=== PATIENT | male | born 1965 | race Caucasian/White ===

== ENCOUNTER 2021-06-30 07:03 | Emergency (ER) | payer BC ==
[~2021-06-30] VITALS: Ht 193 cm; Wt 102.1 kg
[2021-06-30 07:10] VITALS: BP 165/105
[2021-06-30] MEDS ORDERED: DROPERIDOL (07:26)
[2021-06-30] MEDS ORDERED: INSULIN LI100 UNIT/1 (07:27)
== END 2021-06-30 11:15 ==
LOC: ER 07:03
PROVIDERS: Student in an Organized Health Care Education/Training Program
DX: F03.91 Unspecified dementia, unspecified severity, with behavioral disturbance (principal); Z20.822 Contact with and (suspected) exposure to COVID-19

== ENCOUNTER 2021-06-30 09:46 | Inpatient (IN) | payer BC ==
[~2021-06-30] VITALS: Ht 182.9 cm; Wt 81.8 kg
[~2021-06-30 09:46] MED LIST: DROPERIDOL; INSULIN LI100 UNIT/1
[2021-06-30 12:37] VITALS: BP 167/84
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
[2021-06-30 13:50] LABS: CHOLESTEROL 162 mg/dL (<200); HDL CHOLESTEROL 60 mg/dL (>40); LDL CHOLESTEROL 92 mg/dL (<100); TC:HDL 2.7 Ratio (Not establshd); TRIGLYCERIDE 53 mg/dL (<150); VLDL 11 mg/dL (<40)
[2021-06-30 14:12] LABS: ABSOLUTE NEUTROPHILS 4.7 thou/uL (1.4-8.2); BASOPHILS 0.7 % (0.0-2.0); EOSINOPHILS 0.9 % (0.0-3.0); HEMATOCRIT 33.7 % (42.0-52.0); HEMOGLOBIN 11.3 gm/dL (14.0-18.0); LYMPHOCYTES 18.1 % (24.0-44.0); MCH 30.2 pg (26.0-34.0); MCHC 33.4 g/dL (28.0-37.0); MCV 90.3 fL (80.0-100.0); MONOCYTES 7.4 % (1.0-8.0); PLATELET COUNT 348 thou/uL (150-400); POLYS 72.9 % (36.0-66.0); RBC 3.73 mil/uL (4.50-6.00); RDW 14.1 % (10.5-14.5); WBC 6.5 thou/uL (4.0-11.0)
[2021-06-30 14:44] LABS: CALCIUM 9.3 mg/dL (8.5-10.1); CREATININE 1.2 mg/dL (0.7-1.3); MAGNESIUM 1.7 mg/dL (1.8-2.4); POTASSIUM 5.6 mmol/L (3.5-5.1); TOTAL BILIRUBIN 0.7 mg/dL (0.2-1.0); TOTAL PROTEIN 7.6 g/dL (6.4-8.2)
[2021-06-30 19:22] VITALS: BP 160/103
--- NOTE | 2021-07-01 03:16 | NUR ---
PATIENT HAS BEEN ISOLATIVE IN HIS ROOM SINCE THE BEGINNING OF HS SHIFT. HE TOLD STAFF THAT HE WAS SLEEPY AND WANTED TO BE LEFT ALONE. HE DENIES SI/HI OR PAIN. PATIENT WAS ADMITTED WITH BLOOD SUGARS GREATER THAN 500 DURING THE AM SHIFT. PATIENT HAS BEEN GIVEN MULTIPLE DOSES OF COVERAGE FOR SUGAR. AT HS SHIFT PATIENT GLUCOSE LEVEL WAS 36. HE WAS LETHARGIC BUT ABLE TO ANSWER QUESTIONS AND ABLE TO TOLERATE PO FLUIDS. 2 CUPS OF OJ GIVEN AND ORAL GLUCOSE ADMINISTERED. AFTER APPROXIMATELY 15-20 MINUTES RECHECK REVEALED GLUCOSE LEVEL ONLY UP TO 50. GLUCOSE ADMINISTERED INTRAMUSCULARLY WHICH PATIENT TOLERATED WELL. AFTER 20 MINUTES GLUCOSE LEVEL UP OVER 120. PATIENT REMAINS CALM AND COOPERATIVE. ALL OTHER VSS. DENIES PAIN OR OTHER NEEDS. WILL CONTINUE TO MONITOR FOR CHANGES IN STATUS.
[2021-07-01 04:06] LABS: GLYCOHEMOGLOBIN (HGB A1C) 12.1 % (4.8-5.6)
[2021-07-01 05:58] LABS: ABSOLUTE NEUTROPHILS 4.1 thou/uL (1.4-8.2); BASOPHILS 0.6 % (0.0-2.0); EOSINOPHILS 3.5 % (0.0-3.0); HEMATOCRIT 34.9 % (42.0-52.0); HEMOGLOBIN 11.7 gm/dL (14.0-18.0); LYMPHOCYTES 31.7 % (24.0-44.0); MCH 29.9 pg (26.0-34.0); MCHC 33.5 g/dL (28.0-37.0); MCV 89.3 fL (80.0-100.0); MONOCYTES 4.9 % (1.0-8.0); PLATELET COUNT 362 thou/uL (150-400); POLYS 59.3 % (36.0-66.0); RBC 3.91 mil/uL (4.50-6.00); WBC 6.9 thou/uL (4.0-11.0)
[2021-07-01 06:07] LABS: CALCIUM 9.4 mg/dL (8.5-10.1)
[2021-07-01 06:15] LABS: POTASSIUM 4.5 mmol/L (3.5-5.1)
[2021-07-01 10:52] VITALS: BP 138/64
--- NOTE | 2021-07-01 17:35 | NUR ---
NATHAN and Dr. Alvarenga were able to speak to the Pt's court appointed Guardian Kayliereid Duong. Kaylie informed the Pt's placement would not take the Pt back. Kaylie stated the placement did sign the statement at admission but told her they do not plan to accept him back. Kaylie stated the Pt is in need of a memory care facility with a locked unit. Kaylie stated the Pt does have private funds of about $20,000. However Pt would need a placement that could take medicaid once Pt has spent down the money. Kaylie also informed Pt is a " Brittle Diabetic". That the Pt blood sugar goes very low to extremley high. Kaylie stated "It's not unusually for his blood sugar to be in the 600's". Medications were discussed. Kaylie was in agreement to med changes. There were no other questions or concerns at this time. NATHAN will continue to follow
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
[2021-07-01 19:29] VITALS: BP 144/97
--- NOTE | 2021-07-02 05:23 | NUR ---
Assumed care of pt at 1900. Pt calm et cooperative this shift. Took medications whole without difficulty. Ambulates the halls ad manpreet with steady gait. Isolated in room most of shift. VSWNL. Health assessment with no abnormalities noted at present time. Glargine insulin given on this shift due to not being given n previous shift per orders. HS accucheck was 346 at 1936 resulting in 16 units of Lispro administered per sliding scale. Pt denies SI/HI at present time. Currently resting in bed with eyes closed. Will continue to monitor per unit protocol.
--- NOTE | 2021-07-02 09:46 | NUR ---
New admit to [facility] with major neurocognitive disorder, hx dementia, DM, and CVA. Attempted visit this am, however pt in room, locked. Initial chart review showing poor diabetes control with A1C of 12%. BG as low as 36 and as high as 500. Has demonstrated good appetite since admit. Large wt discrepancy noted in computer 155 lb vs 225 lb. Alerted DEHYDRATING PRESS OPERATOR who indicated will reweigh pt. Add carb control to current diet order. Presents low nutrition risk and will continue to follow intake trends and wts as appropriate.
[2021-07-02 09:49] VITALS: BP 144/86
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
[2021-07-02 14:31] VITALS: BP 144/86
--- NOTE | 2021-07-02 17:50 | NUR ---
Primary care done by Rosalina Multani LPN. Assessment done by this RN. Alert and orientated to person, giving incomplete answers to other orientation questions. Angry, refusing parts of assessment and being sarcastic. Denies SI/HI. Breath sounds clear. Reg HR auscultated. Color pink with brisk capillary refill and palpable peripheral pulses. Active bowel sounds over soft, rounded abdomen. Ambulates with regular, steady gait.
[2021-07-02 19:20] VITALS: BP 148/91
--- NOTE | 2021-07-03 04:21 | NUR ---
Assumed care of pt at 1900. Pt calm et cooperative most of shift. Isolated in room for majority of shift. Took medications whole without difficulty. Continues to refuse ointment for facial rash. When asked why he does not want to use, pt states, "I just don't want it". Ambulates the halls ad manpreet with steady gait. Came to the dayroom to ask for a snack several times tonight et became visibly upset when was told that he could not have ice cream because it is not sugar-free and his blood sugars continue to be elevated. HS blood sugar was 295 et Lispro insulin was administered per sliding scale. VSWNL. Health assessment with no abnormalities noted at present time. Pt denies SI/HI at present time. No AVH noted at present time. No c/o pain or discomfort voiced this shift. Currently resting in bed with eyes closed. Will continue to monitor per unit protocol.
[2021-07-03 08:20] VITALS: BP 130/84
[2021-07-03 09:13] VITALS: BP 130/84
--- NOTE | 2021-07-03 17:17 | NUR ---
Assumed pt care this morning from overnight shift. Client presented hostile and irritable this morning and was resistant to cares. Client would not let staff take his blood sugars in the morning, yelling "you can't make me; you better call security; I'll punch you." Client would not let two different roadway designer staff or two different nurses take his blood sugar initially. Security was called for this, as client was threatening, and is a highly fluctuating diabetic with erratic blood sugars who has been running high blood sugars. Security called to help with medical precaution, as blood sugar was vital to client care. When security came, client stated "I didn't ask for security" and let staff provide care without any interference from security at this time. Client's blood glucose recorded and was 186 this morning. Sliding scale insulin given in addition to 30 units of glarine per order. Client was compliant with all medications at this time and accepted insulin as well. Client was oriented to self only at this time, and stated it was 2010 and that he was in a senior living. Client stated "I only have depression and anxiety when you're here" to staff when asked about depression and anxiety symptoms. Client denied hallucinations at this time. Client denied any suicidal or homicidal thoughts, and stated "these questions aren't important; I don't know why you keep asking me these questions." Staff explained questions and need for daily questions at this time. Client lung sounds were clear. Bowel sounds present. Last BM 07/02/21. Client's behavior noted to Dr. Young. Client's haldol increased to TID. Client's blood glucose for lunch was 273. Sliding scale insulin given at this time. No resistance to cares. Client took 1500 haldol without any complaint. Client expressed concern of not having any spare clothing at this time. Client given shirt, socks, underwear, and pants from hospital supply. Client became irritable when staff could not provide him with jeans although staff explained that there were not jeans in facility. Despite this, client remained compliant with cares. During dinner, client glucose was 367. Sliding scale insulin given at this time. After dinner, client came up to staff @1820, stating "when are you going to give me my insulin." Staff explained that insulin had already been given at this time. Client stated that it had not. Staff redirected client at this time. Client wanted blood glucose recheck, which was 399. Client advised about peak action time of insulin, and about blood sugar regulation. Client was irritable during this time, but voiced understanding. Hospitalist not called at this time, as blood sugar protocol is calling above 400 and as peak time of insulin has not yet passed. No further concerns at this time.
[2021-07-03 19:09] VITALS: BP 121/80
--- NOTE | 2021-07-04 03:15 | NUR ---
Assumed care of pt at 1900. Pt calm et cooperative this shift. Took medications whole without difficulty. Administered own insulin injection to right lower abdomen per sliding scale for HS accucheck of 273. Came out of room intermittently this shift. Spoke on the phone with mother and brother this shift. Demeanor was brighter and more friendly than reported from previous shift. Ambulates the halls ad manpreet with steady gait. VSWNL. Health assessment with no abnormalities noted at present time. Pt denies SI/HI at present time. No AVH noted this shift. Currently resting in bed with eyes closed. Will continue to monitor per unit protocol.
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
[2021-07-04 09:44] VITALS: BP 131/85
--- NOTE | 2021-07-04 11:20 | NUR ---
Security enforced in giving pt SS insulin this am. Pt came out of room and already made 2 phone calls, one to mom and another to guardian. Dr Leung updated lantus order, ok to give since pt ate 100% breakfast this am. Pt's mother, Jessica updated this am per her request. Pt's mom voiced she can be called to speak with pt in order to get him to cooperate with care as needed. Nursing told pt's mom he was refusing his flagyl topical. Mom voiced pt was diagnosed with rosacea years ago and doesnt think pt sought help for it. Pt currently in the room and now has room lockout order for both meals and groups.
--- NOTE | 2021-07-04 13:19 | NUR ---
Pt declined coming out of rm for group. Started getting agitated and walking towards nursing. Security was called as pt has room lockout order for meals and groups. Security able to talk pt into coming to dayroom. Pt currently sitting in group with flat affect. Nursing to continue to monitor.
--- NOTE | 2021-07-04 18:19 | NUR ---
Pt came to nursing station and informed nursing that he lost his friend Kael Cade, who was a building guard deputy sheriffOffice Agent. Pt was tearful at the time. Nursing condoled with the pt on lost of his friend. Pt later on requested to use the phone to call the paper reel operator's office to speak with his late friend's office. Pt encouraged its already night and on monday. Pt voiced to try to call monday. Unsure if pt knows what number to call. Pt came back to ask for the phone for he could call his mom. Pt took phone to his room. 30 mins later, nursing went into pt's rm, pt had phone but not calling anyone. Pt was upset when asked to hand over since he was not using it. Pt was upset but gave phone. Nursing to continue to monitor.
[2021-07-04 19:07] VITALS: BP 138/84
[2021-07-04 20:10] VITALS: BP 138/84
--- NOTE | 2021-07-05 00:32 | NUR ---
PATIENT WAS FRUSTRATED AND ANGRY AT BEGINNING OF THE SHIFT BECAUSE HE COULDN'T USE THE PHONE RIGHT AWAY BECAUSE THEY WERE OUT. HE CALMED DOWN AND THIS NURSE DIALED THE NUMBER TO HIS MOM AND HE SPOKE WITH HER. HE BECAME ANGRY WHEN I REQUESTED THE PHONE BACK BECAUSE IT NEEDED TO CHARGE. HE COMPLIED AND WENT TO HAVE ICECREAM AFTER FINDING OUT THAT HIS GLUCOSE WAS 44. BLOOD SUGAR RECHECKED IN 20 MINUTES AND IT WAS UP TO 82. CRACKERS WITH PB AND MILK AND JUICE GIVEN. RECHECKED IN AN HOUR AND WAS UP TO 122. PATIENT WAS ASYMPTOMATIC DURING ALL OF THIS EXCEPT FOR HIS IRRITABILITY. PATIENT TOOK HIS MEDS WHOLE AND WENT TO BED. HE HAS BEEN SLEEPING SINCE 2100. VSS. NO OTHER COMPLAINTS. DENIES PAIN, SI/HI/AVH. ROUTINE ROUNDS TO ASSESS SAFETY AND STATUS OF PATIENT. CONTINUING TO MONITOR.
[2021-07-05 09:18] VITALS: BP 131/85; BP 132/78
--- NOTE | 2021-07-05 14:26 | NUR ---
WITHDRAWN TO ROOM INITIALLY THIS AM COMING OUT FOR BREAKFAST AND EATING 100 PERCENT OF MEAL PRIOR TO RETURNING TO ROOM. DURING AM ASSESSMENT/MED PASS OFFERED BRIEF ABRUPT RESPONSES AND TURNED HEAD AWAY WHEN ASKED FOR ADDITIONAL INFORMATION. WHEN ASKED ABOUT HIS MOOD THIS AM STATES VAGUELY "ITS OK" DENIES SI/SH/HI. GAIT STEADY WITHOUT ASSISTIVE DEVICES. DENIES PAIN/DISCOMFORT. HAS BEEN COMPLIENT WITH HAVING ACCUCHECKS AND INSULIN ADMINISTRATION COMPLETED. DYSPHORIC MOOD. DENIES A/V HALLUCINATIONS-NO NOTED OR REPORTED PSYCHOSIS/DELUSIONAL THINKING/PARANOIA.
[2021-07-05 19:35] VITALS: BP 150/94
[2021-07-05 20:11] VITALS: BP 150/94
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
--- NOTE | 2021-07-06 07:22 | NUR ---
Late Entry - called and left message for the DEEJAY Pina at [facility] after the weekend nursing staff reported in treatment team that the facility now reports they will not accept patient back. Yesterday afternoon she returned my call and I reminded her that we only accepted under the condition that they will accept him back once we have completed treatment.She had signed the pre-admission Letter of Understanding. She acknowledged this and we discussed the importance of her facility and patients guardian identifying potential places for patient to live at post discharge. Told her that we can assist in the placement process - ie, sending records, etc. But when he is ready for discharge, he will need to return to them if placement has not been secured. DEEJAY voiced understanding.
[2021-07-06 10:03] VITALS: BP 150/94
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
--- NOTE | 2021-07-06 18:13 | NUR ---
See previous note regarding manual hold and noncompliant behaviors this morning. Pt has since been cooperative with medication and ACCU checks. His BG at breakfast was 151 and pt received 20 units of humalog. BG at lunch was 314 and pt received 28 units of humalog. At dinner pt BG was 123 and received 18 units of humalog. He ate 100% of all meals. He was alert and oriented to self only this shift. He knew it was June but did not know the year, he stated [place]", and when asked why he was in the hospital he said "because I had surgery". He was withdrawn and isolative to his room this shift and refused to go to groups. He came out and asked to use the phone a couple time throughout the day to call his mom and did so appropriately. He asked to use the phone during group time and responded appropriatly to education and redirection regarding times the pt's may use the phone. Pt could not recall his last BM and did not voice any physical complaints this shift. Will continue to monitor.
[2021-07-06 19:19] VITALS: BP 146/89
[2021-07-06 19:30] VITALS: BP 146/89
--- NOTE | 2021-07-06 19:36 | NUR ---
Assumed care on 07/06/21 @ 1900, in bed with the light off, responds to voice A&Ox3, reports that the president is Obama. HRRR, Lungs CTA bilat, ABD n x 4Q. Denies AH/VH, SI/HI, depression and anxiety. Denies pain. Laid down after assessment and asked to have the lights turned off. Will continue to monitor for safety and comfort.
[2021-07-07 08:46] VITALS: BP 144/84
[2021-07-07 09:00] VITALS: BP 144/84
--- NOTE | 2021-07-07 12:22 | NUR ---
Resummed pt care this morning from overnight shift. Pt presented agitated and hostile during this time, but did let staff proceed with cares. Pt was oriented to self, stating that it was the year 2021 and that he was in [place]. Client was disoriented to situation as well, not realizing he was in hospital. Client was reoriented at this time. Client denied any depression and anixety at this time. Client denied any hallucinations at this time, though was seen talking to self in room before staff came in. Client denied any suicidal and homicidal thoughts. Client lung sounds clear. Bowel sounds present. Date of last BM unknown, but client is continent. Client on regime of 12 units scheduled insulin with meals, and sliding scale with meals. Lantus scheduled in morning. All insulin given and tolerated well. During lunch, bg was 336. All insulin given and tolerated well. Client compliant with cares. No further concerns at this time.
--- NOTE | 2021-07-07 13:47 | NUR ---
RT Progress Note- Since his admission, Chucho has not been an active participant of either the milieu or recreation therapy groups. Chucho spends most of his day in his room sleeping and is difficult to wake. He is limited in orientation to situation and has limited understanding when staff talk to him about the importance of program participation. [employer] and rec therapy team will continue to engage patient as he allows.
[2021-07-07 19:34] VITALS: BP 130/81
--- NOTE | 2021-07-07 21:54 | NUR ---
At onset of night club manager pt was standing at the nurses station asking to call his mother. This shift pt was up ad manpreet, alert and oriented to self and the name of the hospital. Pt was not oriented to date and stated he was in the hospital for his diabetes. Pt was compliant with his medications, although he stated he did not need medications. Pt was compliant with vital signs and blood sugar checks. Affect was constricted with poor eye contact. Pt was irritable at times and can be physically intrusive; stand very close to staff when speaking. Pt denied any psych issues. Pt is ambulatory. Will continue to monitor.
[2021-07-08 08:30] VITALS: BP 138/77
[2021-07-08 09:08] VITALS: BP 138/77
--- NOTE | 2021-07-08 11:23 | NUR ---
Nutrition follow up: Pt continues on SB[facility]. [facility] with good intakes at meals 75-100%. No new weight to assess pattern with large discrepancy in meditech 155# vs 225#. BG continues to be poorly controlled but improvement seen with range 162-342 last 48 hrs. Compliant with DM meds while on admit. BM 07/08. Remains low nutrition risk.
--- NOTE | 2021-07-08 11:25 | NUR ---
Please obtain current weight d/t 70 lb weight discrepancy in chart.
--- NOTE | 2021-07-08 12:55 | NUR ---
Assumed pt care this morning from overnight shift. Client was in room resting at this time. Client was hesitant for cares and hostile when staff approached for blood sugar. Client, did, however, let blood glucose cars be done. Morning blood glucose 279. Insulin given via sliding scale, 12 units scheduled. Further insulin given via glarine 30 units scheduled. Pt denied any depression and anxiety at this time. Pt denied any hallucinations at this time. Pt also denied any si/hi. Pt let staff give him insulin, and assess his bowel and lung sounds. Bowel sounds present. Last BM 07/06 although pt cannot remember BMs without staff monitoring. Pt is continent of bowel and bladder with occasional dribbling. Lung sounds clear and diminished. Pt was encouraged to get out of his room and go to group as pt is on room lockout. Pt presented angerly, and stated, "I don't want to leave my room-call security, I dare you" at this time. This nurse, provider, and another nurse encouraged pt to join group and eat breakfast outside of room in order to further facilitate his recovery. Although pt got out of room, pt yelled and banged on door, hitting door and slamming hand on door, stating "let me back in." Pt was redirected at this time and joined group. During lunch, pt let blood sugar cares be done, but was resistant to eating in activity area per room lockout. Pt left for rest period in room, and then came out of room after encouragement from staff and ate lunch in activity area. Insulin given per sliding scale. No further concerns at this time.
[2021-07-08 19:30] VITALS: BP 139/83
--- NOTE | 2021-07-08 21:51 | NUR ---
At onset of party plan sales agent pt was resting in bed awake. This shift pt was up ad manpreet, alert with constricted affect and oriented to self and place. Pt was cooperative with his HS meds. Pt was initially reluctant to his meds, but nurse explained his medication and pt took them. Pt denied psych symptoms. Pt was conversational with RN and juan. Pt talked about the weather with RN. Pt is low fall risk. Will continue to monitor.
[2021-07-09 09:29] VITALS: BP 135/78
--- NOTE | 2021-07-09 10:56 | NUR ---
COMPLIENT WITH INSULINS,ACCUCHECKS THIS AM-ATTENDING MEALS AND SCHEDULED ACTIVITIES. EKG COMPLETED PER MD ORDER- IRRITABLE AND ABRUPT DURING AM ASSESSMENT HOWEVER DOES ALLOW THIS N URSE TO LISTEN TO HEART,LUNG BOWEL SOUNDS. APPETITE GOOD-EATING 100 PERCENT OF MEALS SO FAR THIS SHIFT. GAIT STEADY WITHOUT ASSISTIVE DEVICES- BS ELEVATED THIS AM AT 238-RECEIVED SCHEDULED LANTUS,LISPRO INSULINS IN ADDITION TO SS.
--- NOTE | 2021-07-09 11:35 | EKG ---
[place] [address] [facility] [place] [address] ELECTROCARDIOGRAM REPORT Name: LAURA KEANE [facility] IN M.R.#: [id number] Admission: 06/30/21 Attend Phys: Sami Young DO Discharge: Date of : 65 Report #: [id number] [facility] Test Date: 2021-07-09 Test Time: 09:09:16 Pat Name: LAURA KEANE [facility]: [facility] Gender: M Java Grails Developer: SABA : 1965 Requested By: Sami Young Order Number: [id number] MD: Lorenzo Carranza Measurements Intervals [place] Rate: 72 P: 47 IL: 150 QRS: -26 QRSD: 97 T: 264 QT: 466 QTc: 511 Interpretive Statements Sinus rhythm Inferolateral infarct, age indeterminate Abnrm T, consider ischemia, lateral lds Prolonged QT interval No previous ECG available for comparison Electronically Signed On 07-09-2021 11:35:30 RACQUET MAKER by Lorenzo Carranza [email or web address] <ELECTRONICALLY SIGNED> By: Lorenzo Carranza MD, [facility] 07/09/21 1135 [id number] 8 Lorenzo Carranza MD, FACC /EPI
[2021-07-09 11:45] LABS: ABSOLUTE NEUTROPHILS 4.6 thou/uL (1.4-8.2); BASOPHILS 0.6 % (0.0-2.0); EOSINOPHILS 1.7 % (0.0-3.0); HEMATOCRIT 36.2 % (42.0-52.0); LYMPHOCYTES 18.5 % (24.0-44.0); MCH 29.8 pg (26.0-34.0); MCHC 33.2 g/dL (28.0-37.0); MONOCYTES 5.9 % (1.0-8.0); PLATELET COUNT 334 thou/uL (150-400); POLYS 73.3 % (36.0-66.0); RBC 4.02 mil/uL (4.50-6.00); RDW 13.7 % (10.5-14.5); WBC 6.3 thou/uL (4.0-11.0)
[2021-07-09 12:13] LABS: ALBUMIN 3.5 g/dL (3.4-5.0); CALCIUM 8.9 mg/dL (8.5-10.1); CREATININE 1.1 mg/dL (0.7-1.3); MAGNESIUM 1.5 mg/dL (1.8-2.4); POTASSIUM 4.1 mmol/L (3.5-5.1); TOTAL BILIRUBIN 0.4 mg/dL (0.2-1.0); TOTAL PROTEIN 7.1 g/dL (6.4-8.2)
[2021-07-09 19:54] VITALS: BP 126/79
--- NOTE | 2021-07-10 06:29 | NUR ---
Pt oriented to self. Confused. Pt bg begining of shift was 93 and pt wsa dizzy and weak. Hypoglycemia protocol initiated due to visible s/sx. On recheck, bg was 78. Pt given more snacks, juice and 2% milk also. Later recheck showed bg at 153. Nursing held all pt's insulin at HS. Pt slept well. Easily irritable but did cooperate this shift. Nursing to conitnue to monitor.
[2021-07-10 09:01] VITALS: BP 125/78
--- NOTE | 2021-07-10 18:32 | NUR ---
Calm and cooperative today asking appropriate questions. Alert and orientated to name and place. Denies SI/HI. Breath sounds clear. Reg HR auscultated. Color pink with brisk capillary refill and palpable peripheral pulses. No edema noted. Independent with voiding. Active bowel sounds over soft, flat abdomen. Rash over face. Ambulates with regular steady gait.
--- NOTE | 2021-07-11 04:30 | NUR ---
Assumed pt's care this pm shift. Pt was calm and cooperative with care. Took meds whole without difficulties. Insulin coverage this shift. Had HS snacks. Has some weakness. Pt currently in his room, sleeping. Nursing to continue to monitor.
[2021-07-11 09:02] VITALS: BP 141/81
--- NOTE | 2021-07-11 11:14 | NUR ---
INITIALLY THIS AM IRRITABLE AND FRUSTRATED AND REFUSING HIS AM BLOOD SUGARS-DID EVENTUALLY COMPLY AT AROUND 10AM-TOOK SCHEDULED PO MEDS WITHOUT DIFFICULTY. DENIES SI/SH. DYSPHORIC MOOD-ABRUPT IRRITABLE
[2021-07-11 20:25] VITALS: BP 130/78
--- NOTE | 2021-07-12 04:50 | NUR ---
PATIENT CARE WAS RESUMED AT 1900. HE IS ALERT AND AND ABLE TO VERBALIZE SOME NEEDS. HE AMBULATES AND DENIES PAINS/SI/AVH/HI. HE TOOK HIS MED AFTER SOME PERIODS OF REFUSAL AND CONTINES TO HOLD THEM IN HIS MOUTH FOR A WHILE. HE REFUSED SNACKS WHEN BS WAS LOW AND FINALLY SWALLOWED MED AND ATE SNACKS. BS WAS RECHECKED AND NOTED AT 100. PATIENT WENT TO BED . BED IS LOW, LOCKED AND ALARMED.
--- NOTE | 2021-07-12 13:00 | NUR ---
REFUSED COVID TEST TODAY-HAD TO HAVE 5 STAFF MEMBERS HOLD DOWN FOR MANDATORY COVID TEST. OTHERWISE HAS BEEN COMPLIENT WITH REQUESTS FROM STAFF. BLOOD SUGARS AND INSULIN ADMINISTERED PER MD ORDER
--- NOTE | 2021-07-12 17:20 | NUR ---
Referral sent to the following [facility]
[2021-07-12 20:39] VITALS: BP 147/93
--- NOTE | 2021-07-13 05:12 | NUR ---
[facility]. HE IS ALERT AND AMBULATES. HE IS ABLE TO VERBALIZE HIS NEEDS AND CONCERNS. HE IS TOOK HIS MEDS WHOLE AND URINATED AT THE DININIG ROOM INFRONT OF THE TV WHILE HEADING TO HIS ROOM. HE DENIES PAINS BUT TELL THIS NURSE HE WILL NOT CONTINUE TO TAKE ALL THESE MEDICATION. HE DENIES SI/AVH/HI. REFUSES THE NURSES TO ASSIST HIM WITH TIANA CARE.THE BED IS LOW, LOCKED AND ALARMED
[2021-07-13 09:43] VITALS: BP 131/87
--- NOTE | 2021-07-13 11:48 | NUR ---
Alert and orientated X3. Calm, cooperative and compliant with exception of taking MOM which he poured on floor. Denies SI/HI. Breath sounds clear. Reg HR auscultated. Color pink with brisk capillary refill and palpable peripheral pulses. Active bowel sounds over soft rounded abdomen. Independent with voiding, no documented BM in several days. Ambulates with regular, steady gait. Isolating most of AM but did attend group for several minutes when reminded.
[2021-07-13 19:25] VITALS: BP 141/77
[2021-07-13 21:07] VITALS: BP 141/77
--- NOTE | 2021-07-14 05:19 | NUR ---
PATIENT CARE WAS RESUMED AT 1900. HE IS ALERT AND ORIEBTED X3, HE AMBULATES AND ABLE TO VERBALIZE HIS NEEDS. BS ACTIVE X4 QUADS. HE TOOK HIS MEDS WHOLE AND DENIES SI/AVH/HI AT THIS TIME. PATIENT REFUSED HIS MEDS AND WAS LOCKED OUT OF ROOM WITH STAFF INTERVENTOION HE FINALLY TOOK MED SAYING HE CANNOT SWALLOW THEM. ON ASSESSMET PATIENT DENIES ANY DIFFICULTY WITH SWALLOWING.
[2021-07-14 09:07] VITALS: BP 149/86
--- NOTE | 2021-07-14 13:41 | NUR ---
PATIENT WAS IN BED ASLEEP WHEN CARE ASSUMED, ASSISTED UP BY STAFF, INCONTINENT CARE GIVEN BY THIS NURSE. PATIENT TOOK ALL MEDICATION WHOLE WITHOUT DIFFICULTY, HE IS EATING MEALS, AND DRINKING FLUID WELL, ABLE TO FEED SELF. INSULIN GIVEN PER ORDER, NO S&S HYPO/HYPERGLYCEMIA NOTED. PTIENT IS A&OX 1-2, FORGETFUL, AND CONFUSED AT TIMES. PATIENT IS SLOW TO RESPOND TO ASSESSMENT QUESTIONS. HE DENIES SUICIDAL/HOMICIDAL IDEATION, HE CHOOSE NOT TO RESPOND TO FURTHER ASSESSMENT QUESTIONS. AFFECT IS FLAT/BLUNTED, MOOD IS EUTHYMIC. NO AGITATION OR AGGRESSIVE BEHAVIOR NOTED AT THIS TIME, WILL CONTINUE TO REDIRECT, AND MONITOR FOR SAFETY.
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
[2021-07-14 19:16] VITALS: BP 117/66
[2021-07-14 19:20] VITALS: BP 117/66
--- NOTE | 2021-07-15 01:43 | NUR ---
PATIENT CARE WAS RESUMED AT 1900. HE IS ALERT AND AND ORIENTED. HE IS IN BED AND REFUSING HIS BLOOD SUGAR TO BE CHECKED AND TO TAKE HIS MEDICATION. BS WAS CHECKED WHILE HE WAS ASLEEP BUT HE CONTINUED TO REFUSE HIS MEDS. CALL TO THE PULL OVER BANK VAULT CLERK AND SHE SAID THAT NURSE SHOULD NOTIFY DR. KRAMER IN AM. PATIENT IS INFORMED OF THE OUTCOME OF NOT TAKING MEDS AND HE SAID, " I KNOW , YOU TAKE IT" LUNGS ARE CLEAR, BS ACTIVE X4 QUAD. HE DENIES PAINS/SI/AVH/HI.BED IS LOW, LOCKED AND ALARMED.
--- NOTE | 2021-07-15 08:56 | NUR ---
Nutrition follow up: Pt remains on SBH with possible d/c next week. Noted with change in insulin r/t glu 55-360 range. Pt has been compliant with meds until yesterday, PN reports pt refusing to have BS taken and refusing meds at that time as well. He is showing 100% intakes at meals on carb controlled diet with no c/o chewing or swallowing difficulties. New weight obtained 07/10, showing 181#, will use as baseline. Continues low nutrition risk.
[2021-07-15 09:24] VITALS: BP 134/75
[2021-07-15 11:59] VITALS: BP 134/75
--- NOTE | 2021-07-15 17:00 | NUR ---
PATIENT CARE RESUMMED; PATIENT A&O*3; CONFUSED WITH INTERMITTENT DISORIENTATION PRESENTED THROUGHOUT THE DAY; BLOOD SUGAR THIS MORNING WAS 65; PRODUCE TEAM LEAD HELD SHORT ACTING INSULIN AND GAVE LONG ACTING INSULIN; SUGAR LATER CAME BACK UP AND WAS 359 @1130; PATIENT DENIES PAIN, SI/HI/AVH, ANXIETY, DEPRESSION; PATIENT VERBALIZED CONCERN TO PRODUCE TEAM LEAD ABOUT NOT BEING ABLE TO SWALLOW VERY WELL, WHICH PRODUCE TEAM LEAD NOTED INCREASE IN DROOLING, COUGHING WITH ADMMINISTRATION OF MEDICATIONS AND MEALS; ST EVAL ORDERED; MEALS AND LIQUIDS CHANGED; MEDICATIONS WERE REFUSED THIS MORNING BY PATIENT DUE TO "I CANT SWALLOW THE SHIT" AFTER ST EVAL, MEDICATIONS ARE TO BE CRUSHED "FINELY" IN PUDDING ONLY; PATIENT AGREED TO COMPLY WITH THIS WAY OF MEDICATION ADMINISTRATION; LUNG SOUNDS ARE CLEAR, UUNLABORED; ABDOMEN IS SOFT, NONDEISTENDED WITH BSP*4; PATIENT CAN BE IRRITABLE AT TIMES, BUT THROUGHOUT THE DAY TODAY THE PATIENT WAS EASILY REDIRECTABLE; FALL PRECAUTIONS IN PLACE; WILL CONTINUE TO MONITIOR FOR SAFETY AND BEHAVIORS;
--- NOTE | 2021-07-15 17:00 | NUR ---
NATHAN was made aware of Pt decline and in need of hospice. NATHAN and Dr. Alvarenga did inform Kenneth Siegel Ernie, and Jaron of the decline. The family was informed that the Pt would need hospice house. They were also made aware of the [facility] program. The family was in agreement. NATHAN sent a referral to [facility], [facility], and [facility]. [facility] was unable to accept due to not have appropiate staff to do a peer to peer until Monday. There has been no response at this time from [facility]. Pt was accepted for a GIP bed and [facility] hospice will accept services. Pt will transfer to a medical bed and [facility] will begin tonight. NATHAN informed Dr. Alvarenga of this information.
[2021-07-15 19:20] VITALS: BP 136/92
[2021-07-15 19:22] VITALS: BP 136/92
[2021-07-16 09:12] VITALS: BP 133/83
--- NOTE | 2021-07-16 11:38 | NUR ---
Alert and orientated to name only. Knows he is in hospital but not name. Calm and cooperative this AM but refusing liquid docasate. Denies SI/HI. Breath sounds clear. Reg HR auscultated. Color pink with brisk capillary refill and palpable peripheral pulses. Independent with voiding. Active bowel sounds over soft, rounded abdomen. Unable to evaluate BM d/t pt won't allow staff in bathroom with him. Ambulates with regular, steady gait. Spoke with Dr. Young, will change to Tad. Currently in day room without s/o distress.
--- NOTE | 2021-07-16 16:45 | NUR ---
[facility] to the following: [facility]
[2021-07-16 19:50] VITALS: BP 133/83
--- NOTE | 2021-07-17 01:49 | NUR ---
PATIENT CARE WAS RESUMED AT 1900. HE WAS SITTING AT THE [place]ININIG AREA SOCIALISING WITH OTHER PATIENT. HE IS ABLE TO COMUNICATE WITH WITH NURSE AND MADE NEEDS KNOWN. LUNGS ARE CLEAR BS ACTIVE X4 QUADS. ABD IS SOFT AND NONE TENDER. HE TOOK HIS MEDS AND INSULNIN WAS ADMINISTERED PER ORDER. HE AMBULATES AND DENIES PAIN/AVH/SI/HI. HE IS CONTINENT OF BOWEL AND BLADDER. BED IS LOW, LOCKED AND Q12 MINUTES CHECKS IS ONGOING.
[2021-07-17 07:32] VITALS: BP 127/87
--- NOTE | 2021-07-17 09:18 | NUR ---
Alert and orientated to name only but does make alot of coherent statements. Calm, cooperative and compliant. Denies SI/HI. Breath sounds clear. Reg HR auscultated. Color pink with brisk capillary refill and palpable peripheral pulses. No edema noted. Independent with voiding. Active bowel sounds over soft, rounded abdomen. Ambulates with regular, steady gait. Currently sitting in group without s/o distress. Sleepy, isolating to room when not in groups/meals.
[2021-07-17 19:54] VITALS: BP 151/92
--- NOTE | 2021-07-18 04:08 | NUR ---
07-17-21 CARE TRANSFERRED 1899 OBSERVED PT WALKING IN HALLWAY. LATER PT AAOX2, VSS, RR EVEN AND NONLABORED ON RA, LUNGS CLEAR, HT RR, ABDS SOFT/ACTIVE. PT DENIES PAIN AND SI/HI. PT CALM AND FOLLOW DIRECTION.
[2021-07-18 08:28] VITALS: BP 153/88
--- NOTE | 2021-07-18 13:04 | NUR ---
Assumed pt care this morning from overnight shift. Pt was in room resting at this time and let staff take his blood sugar at this time. Blood sugar in morning was 179 and 15 units standard and sliding scale dosing humalog in addition to standard glarine 35 units given at this time. Client at all food without issue, but presented hostile, and irritable when being assessed by staff. Client was alert and oriented to self only, and denied depression/anxiety, si/hi, and hallucinations, but was noted to be talking about having a truck in his room, and being in a senior living at this time, as well as driving home later. Client would not let staff listen to heart or lung sounds initially. Later on, client let staff listen to heart and lung sounds, but would not take medication. Client refused medication, stating "go away- no, I don't want them" and would not take medication even after pt education was offered again. Different nurse tried to offer medications as well, but pt refused. Another nurse tried to offer pt education but this was also refused by pt. Staff waited 45 minutes and tried again, but client became more hostile, and refused medication. Staff found client in room at next attempt, with toilet clogged, and playing in feces. Client was finally convinced to come out of room and to take a shower as feces was in bathroom, bed, and on client. Client convinced to come out of room at this time, but when door was closed, started to kick at door and yell and scream. Client eventually de-escalated and led into shower at this time without need for manual hold. Client was changed out of his current clothing at this time for hygiene reason and, shower given by this nurse and autocad electrical designer staff, and client's personal belongings washed and sanitized at this time. Client adverse to help with shower initially, but did eventually let staff help with shower. Client shower, and was given new clothing. Client moved to new room. New toiletries and supplies provided.
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
[2021-07-18 19:13] VITALS: BP 149/75
--- NOTE | 2021-07-19 04:11 | NUR ---
07-18-21 CARE TRANSFERRED 1900 OBSERVED PT IN DAY ROOM UP AD JABIER. LATER PT PLEASANTLY CONFUSED AAOX1, VSS, RR EVEN AND NONLABORED ON RA, LUNG CLEAR, HT RR, ABD SOFT/ACTIVE. PT COOPERATIVE AND CALM, EASILY REDIRECTED. PT DENIES PAIN AND SI/HI OBSERVED NO S/S PAIN AND NO SI/HI BEHAVIORS. DURING MEDICATION ADMIN PT HAD NO DIFFICULTIES. PT DENIED ANY FURTHER ASSISTANCE, PT WILL CONTINUE TO BE MONITOR PER [facility].
[2021-07-19 09:17] VITALS: BP 154/90
[2021-07-19 10:00] VITALS: BP 154/90
--- NOTE | 2021-07-19 15:31 | NUR ---
Assumed pt care this morning from overnight shift. Pt presented alert and oriented to self only and was slightly irritable and hostile at this time when staff was doing cares. Client did not want to answer daily questions, and would stare repeatedly into space with perplexed look on his face. Client tried to close door on staff several times and had to be convinced to let staff take his blood glucose as he was initially resistant to cares even involving blood sugars. Client very adverse to pt education at this time as well. Morning medications were given in food due to recent resistance to medication. Noon haldol held as it had not yet been delivered by pharmacy and as client was sleeping at this time. Client has been isolating in room during shift despite room lockout orders. Continues to withdraw.
--- NOTE | 2021-07-19 17:28 | NUR ---
NATHAN spoke with the Juanita at [facility] concerning discharge. Juanita requested clinical notes be faxed to the facility. Juanita stated they needed more notice because they can't provide transportation at this time. NATHAN informed that transportation can be set up for the Pt to return. Juanita then stated they did not have the staff to accept the Pt. NATHAN informed that that is not a reason to allow the Pt to return to the facility. Juanita agreed to the Pt returning. Discharge was set up for 07/20/2021 @ 1300.
--- NOTE | 2021-07-19 17:35 | NUR ---
NATHAN recieved a call from Za at [facility] . Za informed they are able to accept the Pt and they are waiting for approval from the insurance to place Pt in SNF. NATHAN informed the Pt would be private pay for a vermin exterminator stay. Pt provided the guardian's contact information. Discharge was set for 07/20/2021. Za stated she would call SW back with the time of transportation. NATHAN did call Kaylie Duong, Pt's guardian [phone], to inform of this discharge. Kaylie was in agrement with the discharge. NATHAN also contacted [facility] to inform of the change. NATHAN left a message for a call back. As of this note there has been no call back.
[2021-07-19 19:40] VITALS: BP 147/80
[2021-07-19 19:41] VITALS: BP 147/80
--- NOTE | 2021-07-20 02:42 | NUR ---
PATIENT CARE WAS RESUMED AT 1900. HE WAS IN HIS ROOM LYING IN BED WITH IS EYES SLIGHTLY CLOSED. HE DENIES PAINS/SI/AVH/HI. LUNGS ARE CLEAR BS ACTIVE X4 QUADS.HE IS CONTINENT OF BOWEL AND BLADDER.AMBULATES AND ABLE TO VERBALIZE SOME NEEDS.HE TOOK HIS MED CRUSHED IN ICE CREAME.YELLOW TOPS AND SOCKS ARE ON, BED IS LOW,LOCKED AND ALARMED. [id number] CHECKS ARE ARE ONGOING. CONTINUE CARE.
[2021-07-20] MEDS ORDERED: COZAAR 25 MG TA25 M2 PO (08:48)
[2021-07-20] MEDS ORDERED: LIPITOR80 MG PO (08:48)
[2021-07-20] MEDS ORDERED: BAYER CHEWABLE81 MG PO (08:49)
[2021-07-20] MEDS ORDERED: DEPAKOTE SPRIN125 MG PO (08:50)
[2021-07-20] MEDS ORDERED: HALOPERIDOL10 MG PO (08:51)
[2021-07-20] MEDS ORDERED: STIMULANT LAXA1 EACH PO (08:52)
[2021-07-20] MEDS ORDERED: PEPCID20 MG PO (08:52)
[2021-07-20] MEDS ORDERED: LANTUS SUBQ (08:53)
[2021-07-20] MEDS ORDERED: SYNTHROID25 MC1 PO (08:54)
[2021-07-20 10:19] VITALS: BP 130/72
[2021-07-20 10:22] VITALS: BP 130/72
--- NOTE | 2021-07-20 15:14 | NUR ---
Chucho was alert and oriented to self only prior to discharge. He was initially compliant with AM medications but due to ongoing issues with dysphagia he had difficulty swallowing and refused the second half of his morning medications which were crushed in yogurt. Therefore it was difficult to adaquetly document which medications pt refused and which he had consumed. This was communicated with Dr. Young. Pt was otherwise anxious to discharge today but responded appropriately to redirection. His AM BG was 65, pt had a gladd of orange juice and went up to 75. Pt then ate breakfast and Dr. Dempsey adjusted pt's AM Insulin glargine from 30 units to 28 units but was to start tomorrow. Dr. Dempsey was paged adnd order received to adjust the starting dose to today and to give once pt's BG was greater than 100. Pt's BG was 185 upon recheck and new order for insulin glargine was given. Pt's DEWAYNE Lott was called and D/C paperwork was reviewed. Pt's new facility, [facility] of was called and report was given to Elyssa. It was communicated and documented on pt's D/C the changes in insulin glargine. All questions asked and encouraged to call with any further questions. Pt was D/C'd at 1510 and stable upon discharge. He was discharged with all belongings and changed into his own clothing and shoes prior to d/c. Cell phone included in belongings.
--- NOTE | 2021-07-22 19:34 | D ---
[facility] [address] [place] [address] DISCHARGE SUMMARY Name: LAURA KEANE Room #: 527A-A [facility] IN M.R.#: [id number] Admission: 06/30/21 Attend Phys: Sami Young DO Discharge: 07/20/21 Date of : 65 Report #: [id number] THIS REPORT FOR: cc: FAM - Family physician unknown FAM - Family physician unknown Sami Young DO ~ DATE OF SERVICE: 07/20/2021 INPATIENT PSYCHIATRIC DISCHARGE SUMMARY ATTENDING PSYCHIATRIST: Sami Young DO ELECTRONIC DRAFTER: Joo Dempsey MD DISCHARGE DIAGNOSES: Major neurocognitive disorder, likely due to cerebrovascular disease with behavioral disturbance, improved. MEDICAL COMORBIDITIES: Include diabetes type 1, brittle. Hemoglobin A1c 12.1. History of hyponatremia, hyperkalemia, hypertension, hyperlipidemia, elevated TSH, psoriasis on face, noncompliant with antibiotic. The patient is discharging to a new placement at [place], [place]- initially for retirement stay. Psychiatric and medical care per receiving facility. DISCHARGE MEDICATIONS: Insulin Humalog with lispro, sliding scale per receiving facility. Atorvastatin 80 mg oral daily at 0900 hours for hyperlipidemia, losartan 25 mg oral daily at 0900 hours for hypertension and kidney protection, aspirin 81 mg oral daily for heart protection, Depakote sprinkles 750 mg oral twice daily for mood stabilization, Haldol 10 mg oral twice daily for psychosis and impulsivity, Senna/Docusate 2 tabs oral daily at 0900, famotidine 20 mg oral daily for GERD. Lantus was 30 units subcutaneous daily, levothyroxine 25 mcg oral daily at 0700. LABORATORY DATA: Most recent hematology, 07/09; white count 6.3, H and H 12.0 and 36.2, platelet count 334. Chemistries from 07/09; sodium 132, potassium 4.1, chloride 97, bicarbonate 27, anion gap 8, BUN 21, creatinine 1.1, estimated GFR 69, A1c 12.1, calcium 8.9, magnesium 1.5, total bilirubin 0.4, AST 24, ALT 54, alkaline phosphatase 106, albumin 3.5, triglycerides 53, cholesterol 162, LDL 92, HDL 60, B12 of 67, TSH 1.536, this one is from end of June. Depakote level 07/19 was 55. COVID-19 PCR was done multiple times- all negative, most recently on 07/18. The REASON FOR ADMISSION: A 56-[place] [id number] DISCHARGE SUMMARY Name: LAURA KEANE Room #: 527A-A [facility] IN ..#: [id number] Admission: 06/30/21 Attend Phys: Sami Young DO Discharge: 07/20/21 Date of : 65 Report #: [id number] [place], [place]. He was initially sent to [facility]. He was hostile, refusing cares, blood sugar was uncontrolled. is under [place] guardianship. His guardian is Kaylie. HOSPITAL COURSE: The patient was admitted to Geriatric Psychiatry Unit. Initially, the patient was very resistant to medications, even Accu-Cheks, requiring security police officer to be present. Also with similar difficulty with the COVID-19 nasal swab, he had to beld for to retrieve it. Blood sugars were very labile after being in the 30s, 40s and 50s and then upwards of 350 to over 400 the same day. Made multiple discussions with his guardian Kaylie. Options including giving him long-acting Haldol Decanoate with significant risk. Kaylie elected not to do this. We initially had failure with getting him to take Depakote. We have had a second level hich was theraputic. [facility], had requested him not return and was not expecting this, but the clinical social worker was able to get him placed at [facility]. The patient needs a [place] placement due to his guardianship. During the admission, the patient noted to have swallowing difficulty. His diet was changed to nectar thick liquids with soft chopped diet. PHYSICAL EXAMINATION: VITAL SIGNS: On day of discharge, temperature 36.6, pulse 63, respirations 70, BP 130/70, O2 sat 100%. MUSCULOSKELETAL: Thin, atrophic, ill-appearing. MENTAL STATUS EXAMINATION: Well-developed, somewhat ill-appearing, older than age appearing male. Attention and concentration limited. Speech soft and slow rate. Thought process linear. Very limited thought content. General poverty of thought. mood/affect- constricted/congruent Denied SI, HI, auditory, visual, or tactile hallucination. Denied helplessness, hopelessness. Memory not formally tested. Insight and judgment impaired. Fund of knowledge well below average. Prognosis for this patient is poor given significant dementia at age of 56, labile blood pressures, multiple cardiovascular risk factors. <ELECTRONICALLY SIGNED> By: Sami Young DO 07/22/211933 [id number] Sami Young DO /nt
== END 2021-07-20 15:32 | DRG 884 ==
LOC: SBH 09:46
PROVIDERS: Hospitalist; Nurse Practitioner; Psychiatry & Neurology Psychiatry; ADMIT Psychiatry & Neurology Psychiatry; ATTEND Psychiatry & Neurology Psychiatry
DX: F03.91 Unspecified dementia, unspecified severity, with behavioral disturbance (principal); F01.51 Vascular dementia, unspecified severity, with behavioral disturbance; E10.65 Type 1 diabetes mellitus with hyperglycemia; E87.1 Hypo-osmolality and hyponatremia; I10 Essential (primary) hypertension; E78.5 Hyperlipidemia, unspecified; Z20.822 Contact with and (suspected) exposure to COVID-19; L40.9 Psoriasis, unspecified; E87.5 Hyperkalemia; Z79.82 Long term (current) use of aspirin; Z79.899 Other long term (current) drug therapy; Z86.73 Personal history of transient ischemic attack (TIA), and cerebral infarction without residual deficits
CPT/HCPCS: 10880